=== PATIENT | female | born 1990 | race Caucasian/White ===

== ENCOUNTER 2016-06-02 00:20 | Emergency (ER) | payer OTHER ==
[~2016-06-02] VITALS: Ht 160 cm; Wt 63.0 kg
[~2016-06-02 00:20] MED LIST: ALBU18HF INHALATION; ALBU2.5V3 NEB; ALBU8.5H3 INH; AZIT250T94 PO; BECL8.7A INH; BECL8.7A5 INH; D-ME473S18 PO; FLUT9.9S NASAL; GUAI118L94 PO; LEVA0.634 INHALATION; PRED20TA PO; PROM6.25 PO; XOP15INH INH
[2016-06-02 00:28] VITALS: Ht 160 cm; Wt 63.0 kg
[2016-06-02] MEDS ORDERED: ALBUTEROL 0.5% (NEB) 2.5 MG/0.5 ML AMP INH STA (03:11)
[2016-06-02] MEDS ORDERED: METHYLPREDNISOLONE 125 MG INJ IM ONE (03:30)
[2016-06-02] MEDS ORDERED: IPRATROPIUM (NEB) 0.5 MG/2.5 ML AMP HHN ONE (03:30)
[2016-06-02] MEDS ORDERED: LEVALBUTEROL (NEB) 1.25 MG/0.5 ML AMP INH STA (04:38)
[2016-06-02] MEDS ORDERED: BECL8.7A INH (06:10)
[2016-06-02] MEDS ORDERED: GUAI473L22 PO (06:10)
[2016-06-02] MEDS ORDERED: PRED20TA PO (06:10)
--- NOTE | 2016-06-02 06:18 | ERD ---
ER Documentation Chief Complaint Date/Time DATE: 06/02/16 TIME: 06:12 Chief Complaint WORSENING SOB; NON-PRODUCTIVE COUGH X 2 WKS. LAST TYLENOL AT 1700 YESTERDAY HPI 26-year-old female with history of asthma is complaining of cough 2 weeks with shortness of breath since this evening. She has not used both albuterol inhaler and nebulizer at home without improvement. She still has plenty of her inhaler and nebulizer at home, but is running low on Qvar. Patient also want cough medication so she can sleep at night. Denies any fever or chills. ROS All systems reviewed and are negative except as per history of present illness. Medications Home Meds Active Scripts Guaifenesin-Codeine Phosphate* (Guaifenesin* AC Cough Syrup) 473 Ml Liquid, 10 ML PO Q4H Y for COUGH, #120 ML Prov:CHRISTY OLIVAREZ. REPAIRER WELDING EQUIPMENT 06/02/16 Beclomethasone Dip* (Qvar 40*) 7.3 Gm Inha, 2 PUFF INH BID, #1 INHALER Prov:CHRISTY OLIVAREZ. REPAIRER [employer]ING EQUIPMENT 06/02/16 Prednisone* (Prednisone*) 20 Mg Tab, 60 MG PO DAILY for 5 Days, TAB Prov:CHRISTY OLIVAREZ. REPAIRER WELDING EQUIPMENT 06/02/16 Albuterol Sulfate* (Proair HFA*) 8.5 Gm Hfa.aer.ad, 2 PUFF INH Q6, #1 INHALER Prov:ROSA MCDONALD PA-C 04/16/16 Dextromethorphan Hb-Promethazine Hcl (Promethazine DM Syrup) 473 Ml Syrup, 5 ML PO Q6H Y for COUGH for 7 Days, #4 OZ Prov:ROSA MCDONALD PA-C 04/16/16 Azithromycin* (Zithromax*) 250 Mg Tablet, 250 MG PO .DemarcoPACK DIRECTED, #6 TAB TAKE 500 MG (2 TABS) THE FIRST DAY THEN 250 MG (1 TAB) DAYS 2-5 Prov:ROSA MCDONALD PA-C 04/16/16 Prednisone* (Prednisone*) 20 Mg Tab, 40 MG PO DAILY for 4 Days, TAB Prov:ROSA MCDONALD PA-C 04/16/16 Fluticasone Propionate (Flonase Allergy Relief) 9.9 Ml [place].susp, 1 SPRAY NASAL DAILY, #1 BOTTLE TO EACH NOSTRIL Prov:CHRISTY OLIVAREZ NP 11/26/15 Beclomethasone Dip* (Qvar 80*) 7.3 Gm Inha, 1 PUFF INH BID, #1 INHALER Prov:CHRISTY OLIVAREZ NP 11/26/15 Guaifenesin-Codeine Phosphate* (Guaifenesin* with Codeine Liq) 120 Ml Liquid, 5 ML PO Q4H for COUGH, #120 ML Prov:CHRISTY OLIVAREZ NP 10/27/15 Albuterol Sulfate* (Ventolin HFA*) 18 Gm Hfa.aer.ad, 2 PUFF INHALATION Q4H, #1 INHALER Prov:CHRISTY OLIVAREZ NP 10/27/15 Promethazine w/Codeine* (Phenergan w/Codeine* Syrup) 5 Ml Syrup, 5 ML PO Q4H Y for COUGH for 7 Days, ML 6 ounces Prov:ANGELICA FLORES MD 09/15/15 Albuterol Sulfate* (Albuterol Sulfate* Neb) 0.083%-3 Ml Neb, 2.5 MG NEB Q3H Y for WHEEZING AND SOB, #30 VIAL Prov:ANGELICA FLORES MD 09/15/15 Beclomethasone Dip* (Qvar 40*) 7.3 Gm Inha, 1 PUFF INH BID, #1 INHALER Prov:ANGELICA FLORES MD 09/15/15 Albuterol Sulfate* (Ventolin HFA*) 18 Gm Hfa.aer.ad, 2 PUFF INHALATION Q4H, #1 INHALER Prov:ANGELICA FLORES MD 09/15/15 Prednisone* (Prednisone*) 20 Mg Tab, 60 MG PO DAILY for 5 Days, TAB 60 mg by mouth for 3 days then 40 mg and mouth for 3 days. Prov:ANGELICA FLORES MD 09/15/15 Azithromycin* (Zithromax*) 250 Mg Tablet, 250 MG PO .ZPACK DIRECTED, #6 TAB TAKE 500 MG (2 TABS) THE FIRST DAY THEN 250 MG (1 TAB) DAYS 2-5 Prov:ANGELICA FLORES MD 09/15/15 Promethazine w/Codeine* (Phenergan w/Codeine* Syrup) 5 Ml Syrup, 5 ML PO Q4H Y for COUGH, #240 ML Prov:BRITTANY OBANDO NP 06/21/15 Levalbuterol Hcl* (Levalbuterol Hcl*) 0.63 Mg/3 Ml Vial.neb, 0.63 MG INHALATION Q6H Y for WHEEZING AND SOB, #20 VIAL Prov:BRITTANY OBANDO NP 06/21/15 Beclomethasone Dip* (Qvar 40*) 7.3 Gm Inha, 1 PUFF INH BID, #1 INHALER Prov:BRITTANY OBANDO NP 06/21/15 Albuterol Sulfate* (Proair HFA*) 8.5 Gm Hfa.aer.ad, 2 PUFF INH Q4, #1 INHALER Prov:BRITTANY OBANDO NP 06/21/15 Prednisone* (Prednisone*) 20 Mg Tab, 20 MG PO DAILY for 7 Days, TAB Prov:STEPHANIE PERALES MD 04/30/15 Levalbuterol* (Xopenex* HFA) 15 Gm Inha, 2 PUFFS INH Q4H Y for WHEEZING AND SOB for 30 Days, INHALER 1 Refill Prov:STEPHANIE PERALES MD 04/30/15 Levalbuterol Hcl* (Levalbuterol Hcl*) 0.63 Mg/3 Ml Vial.neb, 0.63 MG INHALATION q4h Y for WHEEZING AND SOB for 30 Days, VIAL 1 Refill Prov:STEPHANIE PERALES MD 04/30/15 Promethazine w/Codeine* (Phenergan w/Codeine* Syrup) 5 Ml Syrup, 5 ML PO Q4H Y for COUGH for 20 Days, ML Prov:STEPHANIE PERALES MD 04/30/15 Beclomethasone Dip* (Qvar 80*) 7.3 Gm Inha, 2 PUFF INH BID for 30 Days, INH 1 Refill Prov:STEPHANIE PERALES MD 04/30/15 Allergies Allergies: Coded Allergies: No Known Allergy (Unverified , 04/29/15) PMhx/Soc History of Surgery: Yes (OVARIAN CYST REMOVAL 2012) Anesthesia Reaction: No Hx Neurological Disorder: No Hx Respiratory Disorders: Yes (ASTHMA) Hx Cardiac Disorders: No Hx Psychiatric Problems: No Hx Miscellaneous Medical Probl: No Hx Alcohol Use: No Hx Substance Use: No Hx Tobacco Use: No Smoking Status: Never smoker Physical Exam Vitals Vital Signs Date Time Temp Pulse Resp B/P Pulse Ox O2 Delivery O2 Flow Rate FiO2 06/02/16 05:55 91 96 Room Air 06/02/16 04:50 84 20 94 21 06/02/16 03:28 87 22 93 21 06/02/16 00:28 98.3 103 19 134/87 93 Physical Exam General impression: Well-developed, well-nourished, 26-year-old female, alert, oriented, in no acute distress Head: Normocephalic, atraumatic. Eyes: PERRL, EOM normal. Conjunctiva not injected. ENT: Nasal mucosa erythematous and swollen. Oral mucosa and oropharynx are normal. Neck: Supple, nontender. No lymphanopathy. No nuchal rigidity. Respiration: Normal respiratory effort. Airway tightness with some wheezing noted throughout. Cardiovascular: Regular rate and rhythm. No murmurs or extra heart sounds. Abdomen: Abdomen normal to inspection. Nontender. No masses or organomegaly. Bowel sounds normal. Neuro: Mental status normal, speech normal. Skin: Normal turgor. No rash or lesions. Psych: Normal mood and affect. Results 24 hrs Current Medications Medications (Trade) Dose Ordered Sig/Sandra Route PRN Reason Start Time Stop Time Status Last Admin Dose Admin Methylprednisolone Sodium Succinate (Solu-Medrol) 125 mg ONCE ONCE IM 06/02/16 03:30 06/02/16 03:31 DC 06/02/16 03:19 Albuterol (Proventil 0.5% (Neb)) 10 mg ONCE STAT INH 06/02/16 03:11 06/02/16 03:13 DC 06/02/16 03:27 Ipratropium [place] (Atrovent 0.02% (Neb)) 0.5 mg ONCE ONCE HHN 06/02/16 03:30 06/02/16 03:31 DC 06/02/16 03:27 Levalbuterol (Xopenex Neb) 5 mg ONCE STAT INH 06/02/16 04:38 06/02/16 04:41 DC 06/02/16 04:50 Procedures/MDM Solu-Medrol 125 mg IM, 1 hour continuous nebulizer treatment with albuterol 10 mg at Atrovent 0.5 mg given to the patient. Patient reports feeling better after treatment. Repeat exam revealed still very constricted airways with slightly louder wheezing. Her O2 sat at this time is 95%, improved from 93% on arrival. Additional 1 hour continuous nebulizer treatment with 5 mg Xopenex is given to the patient. After second treatment, patient states that she is breathing much better. Repeat exam showed much improved air movement throughout the lung with some wheezing remains. Her O2 sat at this time is 97%. Patient's respiratory status has stabilized while in the department and is appropriate for outpatient work up. Exam and work up not consistent w/ impending respiratory failure or cardiovascular collapse. Patient appears well, stable for discharge and outpatient management. Medical decision making shared with patient and family. Education provided to patient and family. Patient and family expressed understanding of the plan. Medications on discharge: Qvar, guaifenesin with codeine. Follow-up: Primary care provider in 2-3 days or return to ED if worse. Departure Diagnosis: Primary Impression: Asthma exacerbation Condition: Stable Patient Instructions: Asthma, Acute (Adult) Referrals: [facility] YOU HAVE RECEIVED A MEDICAL SCREENING EXAM AND THE RESULTS INDICATE THAT YOU DO NOT HAVE A CONDITION THAT REQUIRES URGENT TREATMENT IN THE EMERGENCY DEPARTMENT. FURTHER EVALUATION AND TREATMENT OF YOUR CONDITION CAN WAIT UNTIL YOU ARE SEEN IN YOUR DOCTORS OFFICE WITHIN THE NEXT 1-2 DAYS. IT IS YOUR RESPONSIBILITY TO MAKE AN APPOINTMENT FOR FOLOW-UP CARE. IF YOU HAVE A PRIMARY DOCTOR --you should call your primary doctor and schedule an appointment IF YOU DO NOT HAVE A PRIMARY DOCTOR YOU CAN CALL OUR PHYSICIAN REFERRAL HOTLINE AT IF YOU CAN NOT AFFORD TO SEE A PHYSICIAN YOU CAN CHOSE FROM THE FOLLOWING [facility] CL[facility]ICS [facility] [address] [facility]. [facility] [address] [facility]. [facility] [address] [facility]. [facility] [address] [facility]. [facility] [address] [facility]. [facility]. [address] Additional Instructions: Call your primary care doctor TOMORROW for an appointment during the next 2-3 days.See the doctor sooner or return here if your condition worsens before your appointment time. CHRISTY OLIVAREZ NP Jun 02, 2016 06:18
[2016-06-02 06:19] VITALS: BP 119/73; PULSE 104; RESP 14; TEMP 98.2
== END 2016-06-02 06:20 | disposition home or self-care (01) ==
LOC: FTE 00:20
DX: J45.901 Unspecified asthma with (acute) exacerbation (principal)
CPT/HCPCS: 94644; 94645; 96372; J2930; Z7502; Z7610

== ENCOUNTER 2016-09-23 16:03 | Emergency (ER) | payer OTHER ==
[~2016-09-23] VITALS: Ht 157.5 cm; Wt 62.5 kg
[~2016-09-23 16:03] MED LIST changes: +GUAI473L22 PO; +LEVA15HF6 INH; -XOP15INH INH
[2016-09-23 16:05] VITALS: Ht 157.5 cm; Wt 62.5 kg
[2016-09-23] MEDS ORDERED: IPRATROPIUM (NEB) 0.5 MG/2.5 ML AMP NEB STA (17:02)
[2016-09-23] MEDS ORDERED: ALBUTEROL 0.5% (NEB) 2.5 MG/0.5 ML AMP INH STA (17:02)
[2016-09-23] MEDS ORDERED: BECL8.7A5 INH (17:13)
[2016-09-23] MEDS ORDERED: PRED20TA PO (17:13)
[2016-09-23] MEDS ORDERED: ALBU8.5H3 INH (17:13)
--- NOTE | 2016-09-23 17:27 | ERD ---
ER Documentation Chief Complaint Date/Time DATE: 09/23/16 TIME: 17:25 Chief Complaint WHEEZING SINCE THIS MORNING HPI 18-year-old female history of asthma comes emergency department with wheezing that started this morning. She states that usually uses Qvar 80 mg, as well as albuterol. Patient states that she was recently moving furniture and there was a lot of dust 3 days ago and reports that there may have been exacerbation secondary to this. She denies any fevers, chills, cough. She denies chest pain. ROS All systems reviewed and are negative except as per history of present illness. Medications Home Meds Active Scripts Prednisone* (Prednisone*) 20 Mg Tab, 40 MG PO DAILY for 4 Days, TAB Prov:IVON BARCENAS PA-C 09/23/16 Beclomethasone Dip* (Qvar 80*) 7.3 Gm Inha, 1 PUFF INH BID, #1 INHALER Prov:IVON BARCENAS PA-C 09/23/16 Albuterol Sulfate* (Proair HFA*) 8.5 Gm Hfa.aer.ad, 2 PUFF INH Q4, #1 INHALER Prov:IVON BARCENAS PA-C 09/23/16 Guaifenesin-Codeine Phosphate* (Guaifenesin* AC Cough Syrup) 473 Ml Liquid, 10 ML PO Q4H Y for COUGH, #120 ML Prov:CHRISTY OLIVAREZ NP 06/02/16 Beclomethasone Dip* (Qvar 40*) 7.3 Gm Inha, 2 PUFF INH BID, #1 INHALER Prov:CHRISTY OLIVAREZ. GEOTHERMAL TECHNICIAN 06/02/16 Prednisone* (Prednisone*) 20 Mg Tab, 60 MG PO DAILY for 5 Days, TAB Prov:CHRISTY OLIVAREZ. GEOTHERMAL TECHNICIAN 06/02/16 Albuterol Sulfate* (Proair HFA*) 8.5 Gm Hfa.aer.ad, 2 PUFF INH Q6, #1 INHALER Prov:ROSA MCDONALD PA-C 04/16/16 Dextromethorphan Hb-Promethazine Hcl (Promethazine DM Syrup) 473 Ml Syrup, 5 ML PO Q6H Y for COUGH for 7 Days, #4 OZ Prov:ROSA MCDONALD PA-C 04/16/16 Azithromycin* (Zithromax*) 250 Mg Tablet, 250 MG PO .ZPACK DIRECTED, #6 TAB TAKE 500 MG (2 TABS) THE FIRST DAY THEN 250 MG (1 TAB) DAYS 2-5 Prov:ROSA MCDONALD PA-C 04/16/16 Prednisone* (Prednisone*) 20 Mg Tab, 40 MG PO DAILY for 4 Days, TAB Prov:ROSA MCDONALD PA-C 04/16/16 Fluticasone Propionate (Flonase Allergy Relief) 9.9 Ml [place].susp, 1 SPRAY NASAL DAILY, #1 BOTTLE TO EACH NOSTRIL Prov:CHRISTY OLIVAREZ NP 11/26/15 Beclomethasone Dip* (Qvar 80*) 7.3 Gm Inha, 1 PUFF INH BID, #1 INHALER Prov:CHRISTY OLIVAREZ NP 11/26/15 Guaifenesin-Codeine Phosphate* (Guaifenesin* with Codeine Liq) 120 Ml Liquid, 5 ML PO Q4H for COUGH, #120 ML Prov:CHRISTY OLIVAREZ NP 10/27/15 Albuterol Sulfate* (Ventolin HFA*) 18 Gm Hfa.aer.ad, 2 PUFF INHALATION Q4H, #1 INHALER Prov:CHRISTY OLIVAREZ NP 10/27/15 Promethazine w/Codeine* (Phenergan w/Codeine* Syrup) 5 Ml Syrup, 5 ML PO Q4H Y for COUGH for 7 Days, ML 6 ounces Prov:ANGELICA FLORES MD 09/15/15 Albuterol Sulfate* (Albuterol Sulfate* Neb) 0.083%-3 Ml Neb, 2.5 MG NEB Q3H Y for WHEEZING AND SOB, #30 VIAL Prov:ANGELICA FLORES MD 09/15/15 Beclomethasone Dip* (Qvar 40*) 7.3 Gm Inha, 1 PUFF INH BID, #1 INHALER Prov:ANGELICA FLORES MD 09/15/15 Albuterol Sulfate* (Ventolin HFA*) 18 Gm Hfa.aer.ad, 2 PUFF INHALATION Q4H, #1 INHALER Prov:ANGELICA FLORES MD 09/15/15 Prednisone* (Prednisone*) 20 Mg Tab, 60 MG PO DAILY for 5 Days, TAB 60 mg by mouth for 3 days then 40 mg and mouth for 3 days. Prov:ANGELICA FLORES MD 09/15/15 Azithromycin* (Zithromax*) 250 Mg Tablet, 250 MG PO .VICTOR HUGO DIRECTED, #6 TAB TAKE 500 MG (2 TABS) THE FIRST DAY THEN 250 MG (1 TAB) DAYS 2-5 Prov:ANGELICA FLORES MD 09/15/15 Promethazine w/Codeine* (Phenergan w/Codeine* Syrup) 5 Ml Syrup, 5 ML PO Q4H Y for COUGH, #240 ML Prov:BRITTANY OBANDO NP 06/21/15 Levalbuterol Hcl* (Levalbuterol Hcl*) 0.63 Mg/3 Ml Vial.neb, 0.63 MG INHALATION Q6H Y for WHEEZING AND SOB, #20 VIAL Prov:BRITTANY OBANDO NP 06/21/15 Beclomethasone Dip* (Qvar 40*) 7.3 Gm Inha, 1 PUFF INH BID, #1 INHALER Prov:BRITTANY OBANDO NP 06/21/15 Albuterol Sulfate* (Proair HFA*) 8.5 Gm Hfa.aer.ad, 2 PUFF INH Q4, #1 INHALER Prov:BRITTANY OBANDO NP 06/21/15 Prednisone* (Prednisone*) 20 Mg Tab, 20 MG PO DAILY for 7 Days, TAB Prov:STEPHANIE PERALES MD 04/30/15 Levalbuterol* (Xopenex* HFA) 15 Gm Inha, 2 PUFFS INH Q4H Y for WHEEZING AND SOB for 30 Days, INHALER 1 Refill Prov:STEPHANIE PERALES MD 04/30/15 Levalbuterol Hcl* (Levalbuterol Hcl*) 0.63 Mg/3 Ml Vial.neb, 0.63 MG INHALATION q4h Y for WHEEZING AND SOB for 30 Days, VIAL 1 Refill Prov:STEPHANIE PERALES MD 04/30/15 Promethazine w/Codeine* (Phenergan w/Codeine* Syrup) 5 Ml Syrup, 5 ML PO Q4H Y for COUGH for 20 Days, ML Prov:STEPHANIE PERALES MD 04/30/15 Beclomethasone Dip* (Qvar 80*) 7.3 Gm Inha, 2 PUFF INH BID for 30 Days, INH 1 Refill Prov:STEPHANIE PERALES MD 04/30/15 Allergies Allergies: Coded Allergies: No Known Allergy (Unverified , 04/29/15) PMhx/Soc History of Surgery: Yes (OVARIAN CYST REMOVAL 2012) Anesthesia Reaction: No Hx Neurological Disorder: No Hx Respiratory Disorders: Yes (ASTHMA) Hx Cardiac Disorders: No Hx Psychiatric Problems: No Hx Miscellaneous Medical Probl: No Hx Alcohol Use: No Hx Substance Use: No Hx Tobacco Use: No Smoking Status: Never smoker Physical Exam Vitals Vital Signs Date Time Temp Pulse Resp B/P Pulse Ox O2 Delivery O2 Flow Rate FiO2 09/23/16 17:23 60 22 98 21 09/23/16 16:05 97.2 91 18 115/59 94 Physical Exam General: Well-developed, well-nourished. The patient appears in no acute distress. HEENT: Head is normocephalic, atraumatic. No scleral icterus. Neck: Supple. Nontender. Lungs: Bilateral wheezing, nonlabored, no respiratory distress. Heart: Regular rate and rhythm. S1 and S2 are normal. No murmurs, gallops, or rubs. Abdomen: Nondistended. Extremities: No clubbing or cyanosis. Moving extremities x 4. No weakness. Neurologic: Alert and oriented 3. No focal deficits. Normal speech and gait. Skin: Normal turgor. No rash or lesions. Results 24 hrs Current Medications Medications (Trade) Dose Ordered Sig/Sandra Route PRN Reason Start Time Stop Time Status Last Admin Dose Admin Prednisone (Prednisone) 60 mg ONCE ONCE PO 09/23/16 17:30 09/23/16 17:31 09/23/16 17:14 Ipratropium [place] (Atrovent 0.02% (Neb)) 0.5 mg ONCE STAT NEB 09/23/16 17:02 09/23/16 17:04 DC 09/23/16 17:21 Albuterol (Proventil 0.5% (Neb)) 10 mg ONCE STAT INH 09/23/16 17:02 09/23/16 17:04 DC 09/23/16 17:21 Procedures/MDM ED course: Patient was given prednisone 60 mg by mouth, she was given a continuous albuterol neb breathing treatment 10 mg as well as Atrovent 0.5 mg. Re auscultation her breath sounds are much better than breath sounds, she is still wheezing and she reports to be feeling much better at this time and feels comfortable. MDM: 18-year-old female presents with an acute asthma exacerbation, patient symptoms appear to be moderate, without any signs of hypoxia, respiratory distress. Other differentials considered include bronchitis, pneumonia, hypoxia , pulmonary embolus, acute coronary syndrome, however unlikely. She was given a breathing treatment as well as prednisone, she feels better at this time and responded well. Her vitals were reviewed and there are no no signs of hypoxia or respiratory distress. She is requesting refills for the albuterol as well as Qvar which she will be given and she was asked to recheck with her primary care physician. Departure Diagnosis: Primary Impression: Asthma exacerbation Condition: Good Patient Instructions: Asthma Medications Referrals: [facility] YOU HAVE RECEIVED A MEDICAL SCREENING EXAM AND THE RESULTS INDICATE THAT YOU DO NOT HAVE A CONDITION THAT REQUIRES URGENT TREATMENT IN THE EMERGENCY DEPARTMENT. FURTHER EVALUATION AND TREATMENT OF YOUR CONDITION CAN WAIT UNTIL YOU ARE SEEN IN YOUR DOCTORS OFFICE WITHIN THE NEXT 1-2 DAYS. IT IS YOUR RESPONSIBILITY TO MAKE AN APPOINTMENT FOR FOLOW-UP CARE. IF YOU HAVE A PRIMARY DOCTOR --you should call your primary doctor and schedule an appointment IF YOU DO NOT HAVE A PRIMARY DOCTOR YOU CAN CALL OUR PHYSICIAN REFERRAL HOTLINE AT IF YOU CAN NOT AFFORD TO SEE A PHYSICIAN YOU CAN CHOSE FROM THE FOLLOWING [facility] CL[facility]ICS [facility] [address] [facility]. [facility] [address] [facility]. [facility] [address] [facility]. [facility] [address] [facility]. [facility] [address] [facility]. [facility]. [address] [facility]. [facility] YOU HAVE RECEIVED A MEDICAL SCREENING EXAM AND THE RESULTS INDICATE THAT YOU DO NOT HAVE A CONDITION THAT REQUIRES URGENT TREATMENT IN THE EMERGENCY DEPARTMENT. FURTHER EVALUATION AND TREATMENT OF YOUR CONDITION CAN WAIT UNTIL YOU ARE SEEN IN YOUR DOCTORS OFFICE WITHIN THE NEXT 1-2 DAYS. IT IS YOUR RESPONSIBILITY TO MAKE AN APPOINTMENT FOR FOLOW-UP CARE. IF YOU HAVE A PRIMARY DOCTOR --you should call your primary doctor and schedule and appointment IF YOU DO NOT HAVE A PRIMARY DOCTOR YOU CAN CALL OUR PHYSICIAN REFERRAL HOTLINE AT . IF YOU CAN NOT AFFORD TO SEE A PHYSICIAN YOU CAN CHOSE FROM THE FOLLOWING [facility]: [facility] [address] [place] [address] [facility] [address] [place] [address] [facility] + [facility] [address] [place] [address] [facility] Additional Instructions: Call your primary care doctor TOMORROW for an appointment during the next 1-2 days.See the doctor sooner or return here if your condition worsens before your appointment time. IVON BARCENAS PA-C September 23, 2016 17:27
[2016-09-23] MEDS ORDERED: predniSONE 20 MG TAB PO ONE (17:30)
== END 2016-09-23 18:10 | disposition home or self-care (01) ==
LOC: FTE 16:03
DX: J45.901 Unspecified asthma with (acute) exacerbation (principal)
CPT/HCPCS: 94644; J7512; Z7502; Z7610

== ENCOUNTER 2016-11-03 17:06 | Emergency (ER) | payer OTHER ==
[~2016-11-03] VITALS: Ht 160 cm; Wt 62.5 kg
[2016-11-03 17:15] VITALS: Ht 160 cm; Wt 62.5 kg
[2016-11-03] MEDS ORDERED: predniSONE 20 MG TAB PO STA (17:28)
[2016-11-03] MEDS ORDERED: IPRATROPIUM (NEB) 0.5 MG/2.5 ML AMP NEB STA (17:28)
[2016-11-03] MEDS ORDERED: ALBUTEROL 0.5% (NEB) 2.5 MG/0.5 ML AMP INH STA (17:28)
[2016-11-03] MEDS ORDERED: ONDANSETRON (ODT) 4 MG TAB ODT STA (17:28)
--- NOTE | 2016-11-03 17:35 | ERD ---
ER Documentation Chief Complaint Date/Time DATE: 11/03/16 TIME: 17:34 Chief Complaint ASTHMA EXASCERBATION WHEEZING AND SOB HPI 26-year-old female history of asthma comes emergency room and asthma exacerbation and shortness of breath that started last night. Patient states that she usually takes Qvar, albuterol however she states that she ran out of Qvar 4 days ago. She went to try to see her primary care doctor today however the staff was not able to accommodate her in today. She has no associated cough , sore throat, rhinorrhea. She denies fevers or chills. She denies chest pains. ROS All systems reviewed and are negative except as per history of present illness. Medications Home Meds Active Scripts Methylprednisolone* (Medrol* DOSE PACK) 4 Mg/Dose-Pack Tab.ds.pk, 4 MG PO . DIRECTED, #1 PACKET Prov:IVON BARCENAS PA-C 11/03/16 Albuterol Sulfate* (Proair HFA*) 8.5 Gm Hfa.aer.ad, 2 PUFF INH Q4, #1 INHALER Prov:IVON BARCENAS PA-C 11/03/16 Beclomethasone Dip* (Qvar 80*) 7.3 Gm Inha, 1 PUFF INH BID, #1 INHALER Prov:IVON BARCENAS PA-C 11/03/16 Prednisone* (Prednisone*) 20 Mg Tab, 40 MG PO DAILY for 4 Days, TAB Prov:IVON BARCENAS PA-C 09/23/16 Beclomethasone Dip* (Qvar 80*) 7.3 Gm Inha, 1 PUFF INH BID, #1 INHALER Prov:IVON BARCENAS PA-C 09/23/16 Albuterol Sulfate* (Proair HFA*) 8.5 Gm Hfa.aer.ad, 2 PUFF INH Q4, #1 INHALER Prov:IVON BARCENAS PA-C 09/23/16 Guaifenesin-Codeine Phosphate* (Guaifenesin* AC Cough Syrup) 473 Ml Liquid, 10 ML PO Q4H Y for COUGH, #120 ML Prov:CHRISTY OLIVAREZ. PHONOGRAPH MECHANIC 06/02/16 Beclomethasone Dip* (Qvar 40*) 7.3 Gm Inha, 2 PUFF INH BID, #1 INHALER Prov:CHRISTY OLIVAREZ. PHONOGRAPH MECHANIC 06/02/16 Prednisone* (Prednisone*) 20 Mg Tab, 60 MG PO DAILY for 5 Days, TAB Prov:CHRISTY OLIVAREZ NP 06/02/16 Albuterol Sulfate* (Proair HFA*) 8.5 Gm Hfa.aer.ad, 2 PUFF INH Q6, #1 INHALER Prov:ROSA MCDONALD PA-C 04/16/16 Dextromethorphan Hb-Promethazine Hcl (Promethazine DM Syrup) 473 Ml Syrup, 5 ML PO Q6H Y for COUGH for 7 Days, #4 OZ Prov:ROSA MCDONALD PA-C 04/16/16 Azithromycin* (Zithromax*) 250 Mg Tablet, 250 MG PO .ZPACK DIRECTED, #6 TAB TAKE 500 MG (2 TABS) THE FIRST DAY THEN 250 MG (1 TAB) DAYS 2-5 Prov:ROSA MCDONALD PA-C 04/16/16 Prednisone* (Prednisone*) 20 Mg Tab, 40 MG PO DAILY for 4 Days, TAB Prov:ROSA MCDONALD PA-C 04/16/16 Fluticasone Propionate (Flonase Allergy Relief) 9.9 Ml [place].susp, 1 SPRAY NASAL DAILY, #1 BOTTLE TO EACH NOSTRIL Prov:CHRISTY OLIVAREZ NP 11/26/15 Beclomethasone Dip* (Qvar 80*) 7.3 Gm Inha, 1 PUFF INH BID, #1 INHALER Prov:CHRISTY OLIVAREZ NP 11/26/15 Guaifenesin-Codeine Phosphate* (Guaifenesin* with Codeine Liq) 120 Ml Liquid, 5 ML PO Q4H for COUGH, #120 ML Prov:CHRISTY OLIVAREZ NP 10/27/15 Albuterol Sulfate* (Ventolin HFA*) 18 Gm Hfa.aer.ad, 2 PUFF INHALATION Q4H, #1 INHALER Prov:CHRISTY OLIVAREZ NP 10/27/15 Promethazine w/Codeine* (Phenergan w/Codeine* Syrup) 5 Ml Syrup, 5 ML PO Q4H Y for COUGH for 7 Days, ML 6 ounces Prov:ANGELICA FLORES MD 09/15/15 Albuterol Sulfate* (Albuterol Sulfate* Neb) 0.083%-3 Ml Neb, 2.5 MG NEB Q3H Y for WHEEZING AND SOB, #30 VIAL Prov:ANGELICA FLORES MD 09/15/15 Beclomethasone Dip* (Qvar 40*) 7.3 Gm Inha, 1 PUFF INH BID, #1 INHALER Prov:ANGELICA FLORES MD 09/15/15 Albuterol Sulfate* (Ventolin HFA*) 18 Gm Hfa.aer.ad, 2 PUFF INHALATION Q4H, #1 INHALER Prov:ANGELICA FLORES MD 09/15/15 Prednisone* (Prednisone*) 20 Mg Tab, 60 MG PO DAILY for 5 Days, TAB 60 mg by mouth for 3 days then 40 mg and mouth for 3 days. Prov:ANGELICA FLORES MD 09/15/15 Azithromycin* (Zithromax*) 250 Mg Tablet, 250 MG PO .DemarcoPACK DIRECTED, #6 TAB TAKE 500 MG (2 TABS) THE FIRST DAY THEN 250 MG (1 TAB) DAYS 2-5 Prov:ANGELICA FLORES MD 09/15/15 Promethazine w/Codeine* (Phenergan w/Codeine* Syrup) 5 Ml Syrup, 5 ML PO Q4H Y for COUGH, #240 ML Prov:BRITTANY OBANDO NP 06/21/15 Levalbuterol Hcl* (Levalbuterol Hcl*) 0.63 Mg/3 Ml Vial.neb, 0.63 MG INHALATION Q6H Y for WHEEZING AND SOB, #20 VIAL Prov:BRITTANY OBANDO NP 06/21/15 Beclomethasone Dip* (Qvar 40*) 7.3 Gm Inha, 1 PUFF INH BID, #1 INHALER Prov:BRITTANY OBANDO NP 06/21/15 Albuterol Sulfate* (Proair HFA*) 8.5 Gm Hfa.aer.ad, 2 PUFF INH Q4, #1 INHALER Prov:BRITTANY OBANDO NP 06/21/15 Prednisone* (Prednisone*) 20 Mg Tab, 20 MG PO DAILY for 7 Days, TAB Prov:STEPHANIE PERALES MD 04/30/15 Levalbuterol* (Xopenex* HFA) 15 Gm Inha, 2 PUFFS INH Q4H Y for WHEEZING AND SOB for 30 Days, INHALER 1 Refill Prov:STEPHANIE PERALES MD 04/30/15 Levalbuterol Hcl* (Levalbuterol Hcl*) 0.63 Mg/3 Ml Vial.neb, 0.63 MG INHALATION q4h Y for WHEEZING AND SOB for 30 Days, VIAL 1 Refill Prov:STEPHANIE PERALES MD 04/30/15 Promethazine w/Codeine* (Phenergan w/Codeine* Syrup) 5 Ml Syrup, 5 ML PO Q4H Y for COUGH for 20 Days, ML Prov:STEPHANIE PERALES MD 04/30/15 Beclomethasone Dip* (Qvar 80*) 7.3 Gm Inha, 2 PUFF INH BID for 30 Days, INH 1 Refill Prov:STEPHANIE PERALES MD 04/30/15 Allergies Allergies: Coded Allergies: No Known Allergy (Unverified , 04/29/15) PMhx/Soc History of Surgery: Yes (OVARIAN CYST REMOVAL 2012) Anesthesia Reaction: No Hx Neurological Disorder: No Hx Respiratory Disorders: Yes (ASTHMA) Hx Cardiac Disorders: No Hx Psychiatric Problems: No Hx Miscellaneous Medical Probl: No Hx Alcohol Use: No Hx Substance Use: No Hx Tobacco Use: No Physical Exam Vitals Vital Signs Date Time Temp Pulse Resp B/P Pulse Ox O2 Delivery O2 Flow Rate FiO2 11/03/16 17:42 86 19 96 21 11/03/16 17:15 98.9 84 18 115/79 91 Physical Exam General: Well-developed, well-nourished. The patient appears in no acute distress. HEENT: Head is normocephalic, atraumatic. No scleral icterus. Neck: Supple. Nontender. Lungs: Wheezing bilaterally, patient is nonlabored. She is speaking in full sentences. Heart: Regular rate and rhythm. S1 and S2 are normal. No murmurs, gallops, or rubs. Abdomen: Nondistended. Extremities: No clubbing or cyanosis. Moving extremities x 4. No weakness. No lower extremity swelling. Neurologic: Alert and oriented 3. No focal deficits. Normal speech and gait. Skin: Normal turgor. No rash or lesions. Results 24 hrs Current Medications Medications (Trade) Dose Ordered Sig/Sandra Route PRN Reason Start Time Stop Time Status Last Admin Dose Admin Ipratropium [place] (Atrovent 0.02% (Neb)) 0.5 mg ONCE STAT NEB 11/03/16 17:28 11/03/16 17:30 DC 11/03/16 17:40 Albuterol (Proventil 0.5% (Neb)) 10 mg ONCE STAT INH 11/03/16 17:28 11/03/16 17:30 DC 11/03/16 17:38 Prednisone (Prednisone) 60 mg ONCE STAT PO 11/03/16 17:28 11/03/16 17:30 DC 11/03/16 17:48 Ondansetron HCl (Zofran Odt) 4 mg ONCE STAT ODT 11/03/16 17:28 11/03/16 17:30 DC 11/03/16 17:48 Procedures/MDM ER course: Patient was given prednisone 60 mg by mouth, she was given a continuous albuterol neb breathing treatment 10 mg as well as Atrovent 0.5 mg. We auscultation shows improved breath sounds, patient reports to have symptomatic improvement. Pulse oximetry was 96% on room air. Medical decision makin-year-old female comes in with an asthma exacerbation after running out of her medication 4 days ago. Patient states that she ran out of her Qvar and therefore has been having a recent exacerbation. She was wheezing on examination, respond this patient will be given a refill of albuterol, Qvar, and will be given a Medrol Dosepak. I have asked her to follow-up with her primary care doctor for further refills and reevaluation. At this time I doubt acute coronary syndrome, pulmonary embolus, dissection, pneumonia. Departure Diagnosis: Primary Impression: Asthma Condition: IVON Allen PA-C Nov 03, 2016 17:35
[2016-11-03] MEDS ORDERED: ALBU8.5H3 INH (18:21)
[2016-11-03] MEDS ORDERED: MED4DP PO (18:21)
[2016-11-03] MEDS ORDERED: BECL8.7A5 INH (18:21)
[2016-11-03 19:18] VITALS: BP 104/72; PULSE 76; RESP 18; TEMP 98.2
== END 2016-11-03 19:24 | disposition home or self-care (01) ==
LOC: FTE 17:06
DX: J45.901 Unspecified asthma with (acute) exacerbation (principal)
CPT/HCPCS: 94644; J7512; Z7502; Z7610

== ENCOUNTER 2017-01-19 12:49 | Emergency (ER) | payer OTHER ==
[~2017-01-19] VITALS: Ht 160 cm; Wt 64.0 kg
[~2017-01-19 12:49] MED LIST changes: +MED4DP PO
[2017-01-19 12:52] VITALS: Ht 160 cm; Wt 64.0 kg
[2017-01-19] MEDS ORDERED: ALBUTEROL 0.083% (NEB) 2.5 MG/3 ML AMP HHN STA (14:18)
[2017-01-19] MEDS ORDERED: IPRATROPIUM (NEB) 0.5 MG/2.5 ML AMP HHN ONE (14:30)
[2017-01-19] MEDS ORDERED: ALBU18HF INHALATION (15:22)
[2017-01-19] MEDS ORDERED: GUAI473L22 PO (15:22)
[2017-01-19 15:47] VITALS: BP 117/68; PULSE 80; RESP 18; TEMP 98.7
--- NOTE | 2017-01-20 10:24 | ERD ---
ER Documentation Chief Complaint Date/Time DATE: 01/20/17 TIME: 10:19 Chief Complaint cough and cold for 2 weeks, chest pain when coughing HPI 27-year-old female with history of asthma present ED with cough 2 weeks. Cough is nonproductive, worse at night. She reports nasal congestion, sore throat, and chest pain when coughing. Patient thinks that her symptom is getting worse. She has been using albuterol inhaler, which only helped for short period. She also took OTC medications without much relief. Denies fever or chills. Denies abdominal pain, vomiting, or diarrhea. She does have shortness breath at times, relieved with inhaler. No shortness breath at this time. ROS All systems reviewed and are negative except as per history of present illness. Medications Home Meds Active Scripts Albuterol Sulfate* (Ventolin HFA*) 18 Gm Hfa.aer.ad, 2 PUFF INHALATION Q4H, #1 INHALER Prov:CHRISTY OLIVAREZ. HEEL FINISHER 01/19/17 Guaifenesin-Codeine Phosphate* (Guaifenesin* AC Cough Syrup) 473 Ml Liquid, 10 ML PO Q4H Y for COUGH, #120 ML Prov:CHRISTY OLIVAREZ. HEEL FINISHER 01/19/17 Methylprednisolone* (Medrol* DOSE PACK) 4 Mg/Dose-Pack Tab.ds.pk, 4 MG PO . DIRECTED, #1 PACKET Prov:IVON BARCENAS PA-C 11/03/16 Albuterol Sulfate* (Proair HFA*) 8.5 Gm Hfa.aer.ad, 2 PUFF INH Q4, #1 INHALER Prov:IVON BARCENAS PA-C 11/03/16 Beclomethasone Dip* (Qvar 80*) 7.3 Gm Inha, 1 PUFF INH BID, #1 INHALER Prov:IVON BARCENAS PA-C 11/03/16 Prednisone* (Prednisone*) 20 Mg Tab, 40 MG PO DAILY for 4 Days, TAB Prov:IVON BARCENAS PA-C 09/23/16 Beclomethasone Dip* (Qvar 80*) 7.3 Gm Inha, 1 PUFF INH BID, #1 INHALER Prov:IVON BARCENAS PA-C 09/23/16 Albuterol Sulfate* (Proair HFA*) 8.5 Gm Hfa.aer.ad, 2 PUFF INH Q4, #1 INHALER Prov:IVON BARCENAS PA-C 09/23/16 Guaifenesin-Codeine Phosphate* (Guaifenesin* AC Cough Syrup) 473 Ml Liquid, 10 ML PO Q4H Y for COUGH, #120 ML Prov:CHRISTY OLIVAREZ HEEL FINISHER 06/02/16 Beclomethasone Dip* (Qvar 40*) 7.3 Gm Inha, 2 PUFF INH BID, #1 INHALER Prov:CHRISTY OLIVAREZ. HEEL FINISHER 06/02/16 Prednisone* (Prednisone*) 20 Mg Tab, 60 MG PO DAILY for 5 Days, TAB Prov:CHRISTY OLIVAREZ HEEL FINISHER 06/02/16 Albuterol Sulfate* (Proair HFA*) 8.5 Gm Hfa.aer.ad, 2 PUFF INH Q6, #1 INHALER Prov:ROSA MCDONALD PA-C 04/16/16 Dextromethorphan Hb-Promethazine Hcl (Promethazine DM Syrup) 473 Ml Syrup, 5 ML PO Q6H Y for COUGH for 7 Days, #4 OZ Prov:ROSA MCDONALD PA-C 04/16/16 Azithromycin* (Zithromax*) 250 Mg Tablet, 250 MG PO .DemarcoPACK DIRECTED, #6 TAB TAKE 500 MG (2 TABS) THE FIRST DAY THEN 250 MG (1 TAB) DAYS 2-5 Prov:ROSA MCDONALD PA-C 04/16/16 Prednisone* (Prednisone*) 20 Mg Tab, 40 MG PO DAILY for 4 Days, TAB Prov:ROSA MCDONALD PA-C 04/16/16 Fluticasone Propionate (Flonase Allergy Relief) 9.9 Ml [place].susp, 1 SPRAY NASAL DAILY, #1 BOTTLE TO EACH NOSTRIL Prov:CHRISTY OLIVAREZ HEEL FINISHER 11/26/15 Beclomethasone Dip* (Qvar 80*) 7.3 Gm Inha, 1 PUFF INH BID, #1 INHALER Prov:CHRISTY OLIVAREZ HEEL FINISHER 11/26/15 Guaifenesin-Codeine Phosphate* (Guaifenesin* with Codeine Liq) 120 Ml Liquid, 5 ML PO Q4H for COUGH, #120 ML Prov:CHRISTY OLIVAREZ HEEL FINISHER 10/27/15 Albuterol Sulfate* (Ventolin HFA*) 18 Gm Hfa.aer.ad, 2 PUFF INHALATION Q4H, #1 INHALER Prov:CHRISTY OLIVAREZ NP 10/27/15 Promethazine w/Codeine* (Phenergan w/Codeine* Syrup) 5 Ml Syrup, 5 ML PO Q4H Y for COUGH for 7 Days, ML 6 ounces Prov:ANGELICA FLORES MD 09/15/15 Albuterol Sulfate* (Albuterol Sulfate* Neb) 0.083%-3 Ml Neb, 2.5 MG NEB Q3H Y for WHEEZING AND SOB, #30 VIAL Prov:ANGELICA FLORES MD 09/15/15 Beclomethasone Dip* (Qvar 40*) 7.3 Gm Inha, 1 PUFF INH BID, #1 INHALER Prov:ANGELICA FLORES MD 09/15/15 Albuterol Sulfate* (Ventolin HFA*) 18 Gm Hfa.aer.ad, 2 PUFF INHALATION Q4H, #1 INHALER Prov:ANGELICA FLORES MD 09/15/15 Prednisone* (Prednisone*) 20 Mg Tab, 60 MG PO DAILY for 5 Days, TAB 60 mg by mouth for 3 days then 40 mg and mouth for 3 days. Prov:ANGELICA FLORES MD 09/15/15 Azithromycin* (Zithromax*) 250 Mg Tablet, 250 MG PO .ZPACK DIRECTED, #6 TAB TAKE 500 MG (2 TABS) THE FIRST DAY THEN 250 MG (1 TAB) DAYS 2-5 Prov:ANGELICA FLORES MD 09/15/15 Promethazine w/Codeine* (Phenergan w/Codeine* Syrup) 5 Ml Syrup, 5 ML PO Q4H Y for COUGH, #240 ML Prov:BRITTANY OBANDO NP 06/21/15 Levalbuterol Hcl* (Levalbuterol Hcl*) 0.63 Mg/3 Ml Vial.neb, 0.63 MG INHALATION Q6H Y for WHEEZING AND SOB, #20 VIAL Prov:BRITTANY OBANDO NP 06/21/15 Beclomethasone Dip* (Qvar 40*) 7.3 Gm Inha, 1 PUFF INH BID, #1 INHALER Prov:GISELLABRITTANY Maxwell HEEL FINISHER 06/21/15 Albuterol Sulfate* (Proair HFA*) 8.5 Gm Hfa.aer.ad, 2 PUFF INH Q4, #1 INHALER Prov:BRITTANY OBANDO Alissa HEEL FINISHER 06/21/15 Prednisone* (Prednisone*) 20 Mg Tab, 20 MG PO DAILY for 7 Days, TAB Prov:STEPHANIE PERALES MD 04/30/15 Levalbuterol* (Xopenex* HFA) 15 Gm Inha, 2 PUFFS INH Q4H Y for WHEEZING AND SOB for 30 Days, INHALER 1 Refill Prov:STEPHANIE PERALES MD 04/30/15 Levalbuterol Hcl* (Levalbuterol Hcl*) 0.63 Mg/3 Ml Vial.neb, 0.63 MG INHALATION q4h Y for WHEEZING AND SOB for 30 Days, VIAL 1 Refill Prov:STEPHANIE PERALES MD 04/30/15 Promethazine w/Codeine* (Phenergan w/Codeine* Syrup) 5 Ml Syrup, 5 ML PO Q4H Y for COUGH for 20 Days, ML Prov:STEPHANIE PERALES MD 04/30/15 Beclomethasone Dip* (Qvar 80*) 7.3 Gm Inha, 2 PUFF INH BID for 30 Days, INH 1 Refill Prov:STEPHANIE PERALES MD 04/30/15 Allergies Allergies: Coded Allergies: No Known Allergy (Unverified , 01/19/17) PMhx/Soc History of Surgery: Yes (OVARIAN CYST REMOVAL 2012) Anesthesia Reaction: No Hx Neurological Disorder: No Hx Respiratory Disorders: Yes (ASTHMA) Hx Cardiac Disorders: No Hx Psychiatric Problems: No Hx Miscellaneous Medical Probl: No Hx Alcohol Use: No Hx Substance Use: No Hx Tobacco Use: No Smoking Status: Never smoker Physical Exam Vitals Vital Signs Date Time Temp Pulse Resp B/P Pulse Ox O2 Delivery O2 Flow Rate FiO2 01/19/17 15:47 98.7 80 18 117/68 100 Room Air 01/19/17 15:21 94 18 119/70 98 01/19/17 14:43 77 19 93 21 01/19/17 12:52 98.4 88 18 129/73 93 Physical Exam General: Well-developed, well-nourished, conscious and coherent, in no distress Skin: Warm and dry without rash, good texture and turgor Head: Normocephalic without evidence of trauma Eyes: Sclera and conjunctivae normal; pupils equal, round, and reactive to light; extraocular movements are intact Ears: Canals are patent. Tympanic membranes are clear Nose/Face: Without rhinorrhea Mouth/throat: Mucous membranes are moist. Posterior pharynx clear without erythema or exudates Neck: Supple without meningismus or adenopathy. Carotids are equal. Trachea midline. No bruits or JVD Chest: Normal AP diameter. Good expansion without retractions. Nontender. Diffuse inspiratory and expiratory wheezes throughout. Heart: Regular rate and rhythm. No murmur, rub, or gallops heard Extremities: Full range of motion. Good strength bilaterally. No clubbing, cyanosis, or edema. Peripheral pulses are intact. Sensation intact Neuro: Alert and oriented 4, GCS 15. Cranial nerves grossly intact. Motor and sensory exams nonfocal. Moves all extremities. Speech clear. Gait normal Results 24 hrs Current Medications Medications (Trade) Dose Ordered Sig/Sandra Route PRN Reason Start Time Stop Time Status Last Admin Dose Admin Albuterol (Proventil 0.083% (Neb)) 10 mg ONCE STAT N 01/19/17 14:18 01/19/17 14:20 DC 01/19/17 14:41 Ipratropium [place] (Atrovent 0.02% (Neb)) 1 mg ONCE ONCE N 01/19/17 14:30 01/19/17 14:31 DC 01/19/17 14:41 Procedures/MDM Well-appearing 27-year-old female with history of asthma present ED with cough 2 weeks. Her oxygen saturation at arrival was 93%, she has significant wheezing on auscultation. Nebulizer treatment with 10 mg albuterol and 1 mg Atrovent was given to the patient. After nebulizer treatment, there is still some wheezing remaining, but her oxygen saturation improved to 99%. I have low suspicion for pneumonia or bacterial bronchitis. Likely, her symptoms is due to viral URI. Patient appears well, stable for discharge and outpatient management. Medical decision making shared with patient and family. Education provided to patient and family. Patient and family expressed understanding of the plan. Medications on discharge: Cough medicine with codeine, albuterol HFA. Follow-up: Primary care provider in 2-3 days or return to ED if worse. Disclaimer: Inadvertent spelling and grammatical errors are likely due to EHR/ dictation software use and do not reflect on the overall quality of patient care. Also, please note that the electronic time recorded on this note does not necessarily reflect the actual time of the patient encounter. Departure Diagnosis: Primary Impression: URI (upper respiratory infection) Additional Impressions: Cough Asthma Condition: Stable Patient Instructions: Adult Self-Care for Colds, Asthma Referrals: [facility] YOU HAVE RECEIVED A MEDICAL SCREENING EXAM AND THE RESULTS INDICATE THAT YOU DO NOT HAVE A CONDITION THAT REQUIRES URGENT TREATMENT IN THE EMERGENCY DEPARTMENT. FURTHER EVALUATION AND TREATMENT OF YOUR CONDITION CAN WAIT UNTIL YOU ARE SEEN IN YOUR DOCTORS OFFICE WITHIN THE NEXT 1-2 DAYS. IT IS YOUR RESPONSIBILITY TO MAKE AN APPOINTMENT FOR FOLOW-UP CARE. IF YOU HAVE A PRIMARY DOCTOR --you should call your primary doctor and schedule an appointment IF YOU DO NOT HAVE A PRIMARY DOCTOR YOU CAN CALL OUR PHYSICIAN REFERRAL HOTLINE AT IF YOU CAN NOT AFFORD TO SEE A PHYSICIAN YOU CAN CHOSE FROM THE FOLLOWING [facility] [address] [facility]. [facility] [address] [place]. [facility] [address] [facility]. [facility] [address] [facility]. [facility] [address] [facility]. [facility]. [address] [place] Additional Instructions: Call your primary care doctor TOMORROW for an appointment during the next 2-3 days.See the doctor sooner or return here if your condition worsens before your appointment time. CHRISTY OLIVAREZ NP Jan 20, 2017 10:24
== END 2017-01-19 15:47 | disposition home or self-care (01) ==
LOC: FTE 12:49
DX: J06.9 Acute upper respiratory infection, unspecified (principal); J45.901 Unspecified asthma with (acute) exacerbation
CPT/HCPCS: 94644; Z7502; Z7610

== ENCOUNTER 2017-01-22 05:15 | Emergency (ER) | payer OTHER ==
[~2017-01-22] VITALS: Wt 59.5 kg
[2017-01-22] MEDS ORDERED: METHYLPREDNISOLONE 125 MG INJ IM STA (06:18)
[2017-01-22] MEDS ORDERED: ALBUTEROL 0.5% (NEB) 2.5 MG/0.5 ML AMP INH STA (06:18)
[2017-01-22] MEDS ORDERED: IPRATROPIUM (NEB) 0.5 MG/2.5 ML AMP NEB STA (06:18)
--- NOTE | 2017-01-22 06:35 | ERD ---
ER Documentation Chief Complaint Date/Time DATE: 01/22/17 TIME: 06:22 Chief Complaint Asthma Attack. SOB HPI 27-year-old female with a long history of asthma and multiple previous hospitalizations, most recently admitted in AprilApril 2015, last seen in the ED 2 days ago presents the ED complaining of worsening cough productive of whitish sputum and shortness of breath with wheezing. Symptoms began approximately 2 weeks ago with nonspecific URI symptoms. Including rhinorrhea, body aches, subjective fevers, cough and wheezing. Also complaining of diffuse , moderate, sharp chest pain with coughing. She was seen in the ED December 19 for similar symptoms but is not improved. No abdominal pain, posttussive emesis , nausea or vomiting. No headache or neck pain. No skin rash. Denies dysuria , polyuria hematuria. No vaginal discharge or bleeding. No ill contacts or secondary smoke exposure. ROS All systems reviewed and are negative except as per history of present illness. Medications Home Meds Active Scripts Ondansetron (Ondansetron Odt) 4 Mg Tab.rapdis, 4 MG PO Q6H Y for NAUSEA AND/OR VOMITING, #10 TAB Prov:YARITZA HERNANDEZ MD 01/22/17 Famotidine* (Pepcid*) 20 Mg Tablet, 20 MG PO BID for 10 Days, TAB Prov:YARITZA HERNANDEZ MD 01/22/17 Prednisone* (Prednisone*) 20 Mg Tab, 40 MG PO DAILY for 4 Days, TAB Prov:ROSA MCDONALD PA-C 04/16/16 Fluticasone Propionate (Flonase Allergy Relief) 9.9 Ml [place].susp, 1 SPRAY NASAL DAILY, #1 BOTTLE TO EACH NOSTRIL Prov:CHRISTY OLIVAREZ NP 11/26/15 Albuterol Sulfate* (Ventolin HFA*) 18 Gm Hfa.aer.ad, 2 PUFF INHALATION Q4H, #1 INHALER Prov:CHRISTY OLIVAREZ NP 10/27/15 Albuterol Sulfate* (Proair HFA*) 8.5 Gm Hfa.aer.ad, 2 PUFF INH Q4, #1 INHALER Prov:BRITTANY OBANDO NP 06/21/15 Levalbuterol* (Xopenex* HFA) 15 Gm Inha, 2 PUFFS INH Q4H Y for WHEEZING AND SOB for 30 Days, INHALER 1 Refill Prov:STEPHANIE PERALES MD 04/30/15 Levalbuterol Hcl* (Levalbuterol Hcl*) 0.63 Mg/3 Ml Vial.neb, 0.63 MG INHALATION q4h Y for WHEEZING AND SOB for 30 Days, VIAL 1 Refill Prov:STEPHANIE PERALES MD 04/30/15 Beclomethasone Dip* (Qvar 80*) 7.3 Gm Inha, 2 PUFF INH BID for 30 Days, INH 1 Refill Prov:STEPHANIE PERALES MD 04/30/15 Discontinued Scripts Albuterol Sulfate* (Ventolin HFA*) 18 Gm Hfa.aer.ad, 2 PUFF INHALATION Q4H, #1 INHALER Prov:CHRISTY OLIVAREZ NP 01/19/17 Guaifenesin-Codeine Phosphate* (Guaifenesin* AC Cough Syrup) 473 Ml Liquid, 10 ML PO Q4H Y for COUGH, #120 ML Prov:CHRISTY OLIVAREZ NP 01/19/17 Methylprednisolone* (Medrol* DOSE PACK) 4 Mg/Dose-Pack Tab.ds.pk, 4 MG PO . DIRECTED, #1 PACKET Prov:IVON BARCENAS PA-C 11/03/16 Albuterol Sulfate* (Proair HFA*) 8.5 Gm Hfa.aer.ad, 2 PUFF INH Q4, #1 INHALER Prov:IVON BARCENAS PA-C 11/03/16 Beclomethasone Dip* (Qvar 80*) 7.3 Gm Inha, 1 PUFF INH BID, #1 INHALER Prov:IVON BARCENAS PA-C 11/03/16 Prednisone* (Prednisone*) 20 Mg Tab, 40 MG PO DAILY for 4 Days, TAB Prov:IVON BARCENAS PA-C 09/23/16 Beclomethasone Dip* (Qvar 80*) 7.3 Gm Inha, 1 PUFF INH BID, #1 INHALER Prov:IVON BARCENAS PA-C 09/23/16 Albuterol Sulfate* (Proair HFA*) 8.5 Gm Hfa.aer.ad, 2 PUFF INH Q4, #1 INHALER Prov:IVON BARCENAS PA-C 09/23/16 Guaifenesin-Codeine Phosphate* (Guaifenesin* AC Cough Syrup) 473 Ml Liquid, 10 ML PO Q4H Y for COUGH, #120 ML Prov:CHRISTY OLIVAREZ NP 06/02/16 Beclomethasone Dip* (Qvar 40*) 7.3 Gm Inha, 2 PUFF INH BID, #1 INHALER Prov:CHRISTY OLIVAREZ [employer] 06/02/16 Prednisone* (Prednisone*) 20 Mg Tab, 60 MG PO DAILY for 5 Days, TAB Prov:CHRISTY OLIVAREZ [employer] 06/02/16 Albuterol Sulfate* (Proair HFA*) 8.5 Gm Hfa.aer.ad, 2 PUFF INH Q6, #1 INHALER Prov:ROSA MCDONALD PA-C 04/16/16 Dextromethorphan Hb-Promethazine Hcl (Promethazine DM Syrup) 473 Ml Syrup, 5 ML PO Q6H Y for COUGH for 7 Days, #4 OZ Prov:ROSA MCDONALD PA-C 04/16/16 Azithromycin* (Zithromax*) 250 Mg Tablet, 250 MG PO .ZPACK DIRECTED, #6 TAB TAKE 500 MG (2 TABS) THE FIRST DAY THEN 250 MG (1 TAB) DAYS 2-5 Prov:ROSA MCDONALD PA-C 04/16/16 Beclomethasone Dip* (Qvar 80*) 7.3 Gm Inha, 1 PUFF INH BID, #1 INHALER Prov:CHRISTY OLIVAREZ NP 11/26/15 Guaifenesin-Codeine Phosphate* (Guaifenesin* with Codeine Liq) 120 Ml Liquid, 5 ML PO Q4H for COUGH, #120 ML Prov:CHRISTY OLIVAREZ [employer] 10/27/15 Promethazine w/Codeine* (Phenergan w/Codeine* Syrup) 5 Ml Syrup, 5 ML PO Q4H Y for COUGH for 7 Days, ML 6 ounces Prov:ANGELICA FLORES MD 09/15/15 Albuterol Sulfate* (Albuterol Sulfate* Neb) 0.083%-3 Ml Neb, 2.5 MG NEB Q3H Y for WHEEZING AND SOB, #30 VIAL Prov:ANGELICA FLORES MD 5/2/16 Beclomethasone Dip* (Qvar 40*) 7.3 Gm Inha, 1 PUFF INH BID, #1 INHALER Prov:ANGELICA FLORES MD 09/15/15 Albuterol Sulfate* (Ventolin HFA*) 18 Gm Hfa.aer.ad, 2 PUFF INHALATION Q4H, #1 INHALER Prov:ANGELICA FLORES MD 09/15/15 Prednisone* (Prednisone*) 20 Mg Tab, 60 MG PO DAILY for 5 Days, TAB 60 mg by mouth for 3 days then 40 mg and mouth for 3 days. Prov:ANGELICA FLORES MD 09/15/15 Azithromycin* (Zithromax*) 250 Mg Tablet, 250 MG PO .ZPACK DIRECTED, #6 TAB TAKE 500 MG (2 TABS) THE FIRST DAY THEN 250 MG (1 TAB) DAYS 2-5 Prov:ANGELICA FLORES MD 09/15/15 Promethazine w/Codeine* (Phenergan w/Codeine* Syrup) 5 Ml Syrup, 5 ML PO Q4H Y for COUGH, #240 ML Prov:BRITTANY OBANDO NP 06/21/15 Levalbuterol Hcl* (Levalbuterol Hcl*) 0.63 Mg/3 Ml Vial.neb, 0.63 MG INHALATION Q6H Y for WHEEZING AND SOB, #20 VIAL Prov:BRITTANY OBANDO NP 06/21/15 Beclomethasone Dip* (Qvar 40*) 7.3 Gm Inha, 1 PUFF INH BID, #1 INHALER Prov:BRITTANY OBANDO NP 06/21/15 Prednisone* (Prednisone*) 20 Mg Tab, 20 MG PO DAILY for 7 Days, TAB Prov:STEPHANIE PERALES MD 04/30/15 Promethazine w/Codeine* (Phenergan w/Codeine* Syrup) 5 Ml Syrup, 5 ML PO Q4H Y for COUGH for 20 Days, ML Prov:STEPHANIE PERALES MD 04/30/15 Allergies Allergies: Coded Allergies: No Known Allergy (Unverified , 01/19/17) PMhx/Soc As per HPI History of Surgery: Yes (OVARIAN CYST REMOVAL 2012) Anesthesia Reaction: No Hx Neurological Disorder: No Hx Respiratory Disorders: Yes (ASTHMA) Hx Cardiac Disorders: No Hx Psychiatric Problems: No Hx Miscellaneous Medical Probl: Yes (Abdominal pain) Hx Alcohol Use: No Hx Substance Use: No Hx Tobacco Use: No Smoking Status: Never smoker FmHx No diabetes, asthma, seizures or stroke. Physical Exam Vitals Vital Signs Date Time Temp Pulse Resp B/P Pulse Ox O2 Delivery O2 Flow Rate FiO2 01/22/17 12:05 110 20 124/78 96 Room Air 01/22/17 09:30 111 18 130/97 95 Room Air 01/22/17 08:10 128 22 135/92 95 Room Air 01/22/17 06:36 Nasal Cannula 2 01/22/17 06:28 114 20 95 Nasal Cannula 3.0 01/22/17 06:28 95 3.0 01/22/17 05:20 98.0 126 32 140/89 91 Physical Exam Const: Alert, coughing and mild to moderate respiratory distress Head: Atraumatic Eyes: Conjunctiva Not injected, sclera anicteric ENT: Normal External Ears, Nose and Mouth.Pharynx is clear without erythema or exudate Neck: Full range of motion. No Cervical lymphadenopathy or tenderness. No meningismus. Resp: Tachypneic.Breath sounds diminished bilaterally with mild to moderate expiratory wheezing and prolonged expiratory phase. No retractions. Cardio: Regular rate and rhythm, no murmurs Abd: Soft, non tender, non distended. Normal bowel sounds Skin: No petechiae or rashes Back: No midline or flank tenderness Ext: No cyanosis, or edema. No leg swelling or tenderness. Neur: Awake and alert.No focal deficit observed Psych: Normal Mood and Affect. Appears mildly anxious but not depressed. Result Diagram: 01/22/1780401/22/17804 Results 24 hrs Laboratory Tests Test 01/22/17 08:05 White Blood Count 6.810^3/ul Red Blood Count 5.3510^6/ul Hemoglobin 15.0g/dl Hematocrit 43.3% Mean Corpuscular Volume 80.9fl Mean Corpuscular Hemoglobin 28.0pg Mean Corpuscular Hemoglobin Concent 34.6g/dl Red Cell Distribution Width 12.6% Platelet Count 78548^3/UL Mean Platelet Volume 9.6fl Neutrophils % 89.9% Lymphocytes % 6.9% Monocytes % 2.1% Eosinophils % 0.1% Basophils % 0.4% Nucleated Red Blood Cells % 0.0/100WBC Neutrophils # (Manual) 6.110^3/ul Lymphocytes # 0.510^3/ul Monocytes # 0.110^3/ul Eosinophils # 0.010^3/ul Basophils # 0.010^3/ul Nucleated Red Blood Cells # 0.010^3/ul Sodium Level 138mmol/L Potassium Level 3.7mmol/L Chloride Level 103mmol/L Carbon Dioxide Level 21mmol/L Anion Gap 18 Blood Urea Nitrogen 8mg/dl Creatinine 0.64mg/dl Glucose Level 223mg/dl Hemoglobin A1c 5.7% Calcium Level 9.4mg/dl Total Bilirubin 0.8mg/dl Direct Bilirubin 0.00mg/dl Indirect Bilirubin 0.8mg/dl Aspartate Amino Transf (AST/SGOT) 28IU/L Alanine Aminotransferase (ALT/SGPT) 31IU/L Alkaline Phosphatase 76IU/L Total Protein 7.9g/dl Albumin 4.6g/dl Globulin 3.30g/dl Albumin/Globulin Ratio 1.39 Lipase 33U/L Current Medications Medications (Trade) Dose Ordered Sig/Sandra Route PRN Reason Start Time Stop Time Status Last Admin Dose Admin Ipratropium [place] (Atrovent 0.02% (Neb)) 1 mg ONCE STAT NEB 01/22/17 06:18 01/22/17 06:21 DC 01/22/17 06:27 Albuterol (Proventil 0.5% (Neb)) 15 mg ONCE STAT INH 01/22/17 06:18 01/22/17 06:21 DC 01/22/17 06:28 Methylprednisolone Sodium Succinate 125 mg 125 mg ONCE STAT IM 01/22/17 06:18 01/22/17 06:21 DC 01/22/17 06:37 Sodium Chloride (NS) 1,000 ml @ 1,000 mls/hr Q1H STAT IV 01/22/17 07:57 01/22/17 08:56 DC 01/22/17 08:09 Morphine Sulfate (morphine) 4 mg ONCE STAT IV 01/22/17 07:57 01/22/17 07:59 DC 01/22/17 08:04 Ondansetron HCl (Zofran Inj) 4 mg ONCE STAT IV 01/22/17 07:57 9/9/17 07:59 DC 01/22/17 08:04 Famotidine (Pepcid Iv) 20 mg ONCE STAT IV 01/22/17 07:57 01/22/17 07:59 DC 01/22/17 08:04 Miscellaneous Medication (Gi Cocktail (2)) 40 ml ONCE STAT PO 01/22/17 07:57 01/22/17 07:59 DC 01/22/17 08:04 Morphine Sulfate 4 mg 4 mg ONCE STAT IV 01/22/17 09:11 01/22/17 09:13 DC 01/22/17 09:25 Sodium Chloride (NS) 1,000 ml @ 1,000 mls/hr Q1H STAT IV 01/22/17 09:14 01/22/17 10:13 DC 01/22/17 09:26 Iohexol 150 ml 150 ml STK-MED ONCE .ROUTE 01/22/17 09:47 01/22/17 09:48 DC 01/22/17 10:16 Sodium Chloride (NS) 100 ml @ ud STK-MED ONCE .ROUTE 01/22/17 09:47 01/22/17 09:48 DC 01/22/17 10:17 IMAGING: PROCEDURE: XR Chest. CLINICAL INDICATION: Asthma exacerbation. TECHNIQUE: Single frontal view of the chest was obtained. COMPARISON: Chest x-ray 04/16/2016 03:50 p.m. FINDINGS: There are nodular densities suggestive of artifact projecting over the lower right chest wall and periphery of the right lower lung field. The diaphragms are flattened. There are degenerative osteophytes in the thoracic spine. The heart, cardiomediastinal silhouette and hilar structures are normal. The pulmonary vasculature is normal. There is a left-sided aorta. No regional infiltrate is identified. The costophrenic angles are normal. IMPRESSION: 1. Pulmonary hyperinflation which is little changed as compared to 04/16/2016. No acute infiltrate is identified. 2. Nodular and linear radiodensities projecting over the lower right chest wall and right lower lung field are likely artifactual. Small calcified nodules in the lung could not be entirely excluded from this single view. A repeat chest x-ray view or supplementary lateral view can be performed to confirm this if clinically indicated. RPTAT:AAJJ Physician Gin Date Time Electronically viewed and signed by Physician Gin on 01/22/2017 08:04 JM/ PROCEDURE: CT Abdomen and Pelvis with contrast. CLINICAL INDICATION: Abdominal pain. TECHNIQUE: CT scan of the abdomen and pelvis with contrast was performed utilizing axial tomographic images from the domes the diaphragm to the symphysis pubis. The patient was scanned post uncomplicated intravenous administration of 90 cc of Omnipaque-300. Coronal and sagittal reformatted images were obtained from the axial source images. Images were reviewed on a high-resolution PACS workstation. The total exam CTDI equals 7.94 mGy and the total exam DLP equals 433.59 mGy-cm. One or more of the following dose reduction techniques were used: Automated exposure control, adjustment of the mA and / or kV according to patient size, or use of iterative reconstruction technique. COMPARISON: None. FINDINGS: The lung bases demonstrate mild ground-glass opacities in the right middle lobe. The liver is normal in size and contour. No focal intrahepatic masses are identified. There is no intra or extrahepatic biliary dilatation. The gallbladder is unremarkable by CT criteria. The spleen, pancreas, and adrenal glands are unremarkable. The kidneys are symmetric in size and demonstrate normal enhancement. There is a 1.0 cm hypo enhancing lesion within the mid pole of the right kidney, likely a cyst. No hydronephrosis or hydroureter is seen. No renal parenchymal mass is identified. The urinary bladder is unremarkable. The bowel demonstrates normal course and caliber. There is no evidence of bowel obstruction. No bowel wall thickening is identified. The appendix is not identified with certainty. No right lower quadrant inflammatory changes are noted. The uterus and adnexa are unremarkable. No intraperitoneal free fluid, free air or abscess identified. No retroperitoneal, mesenteric, or inguinal adenopathy is identified. The abdominal aorta and major branching vessels are normal in caliber. The osseous structures are unremarkable. No significant subcutaneous soft tissue abnormality is identified. IMPRESSION: Unremarkable CT scan of the abdomen and pelvis. RPTAT: .Daisy Chaparro MD, MD Date Time Electronically viewed and signed by .Daisy hCaparro MD, MD on 01/22/2017 10 :27 .G/ Procedures/MDM DOCUMENTS REVIEWED: ED nurseMultiple prior ED visits most recently 01/19/2017 for shortness of breath and wheezing. ED COURSE: Nebulized Albuterol 15 mg/Atrovent 1 mg. Solu-Medrol 125 mg IM. Toradol 50 mg IM. REEXAMINATION/REEVALUATIONS: Time: 08:00. No shortness of breath. Increasing breath sounds without wheezing. Not complaining of moderate to severe, sharp and crampy epigastric abdominal pain. Nausea but no vomiting. Exam reveals mild epigastric tenderness but no right upper lower quadrant tenderness. No rebound or guarding. Normal saline 1 L, Morphine 4 mg, Pepcid 20 mg, Zofran 4 mg and a GI cocktail ordered. Time: 09:00. Still complaining of severe abdominal pain. Exam reveals epigastric tenderness but no rebound or guarding. No right or left lower quadrant tenderness. Morphine 4 mg IV given. Time: 10:30. CT of the abdomen and pelvis reveals no acute pathology. Sleeping upon awakening still complains of abdominal pain but exam is completely benign. Time: 09:00. Lungs are clear without no shortness of breath lungs are clear bilaterally without wheezing. Breath sounds are equal bilaterally with good air exchange and no wheezing. Still complains of mild abdominal pain but exam is benign without significant tenderness, rebound, guarding or signs of peritonitis. Tolerating PO's MEDICAL DECISION MAKIN-year-old female with a long history of asthma and multiple previous hospitalizations, most recently admitted in AprilApril 2015, last seen in the ED 2 days ago presents the ED complaining of worsening cough productive of whitish sputum and shortness of breath with wheezing. Presentation consistent with asthma exacerbation. Improved with nebulized beta agonists and intramuscular corticosteroids. Doubt influenza. No radiographic evidence of pneumonia or pneumothorax. Patient subsequently got complaining of abdominal pain which she has had previously. In October 2014 had similar symptoms , the bite asthma exacerbation was time ultrasound of the abdomen revealed no cholelithiasis or cholecystitis was negative. Pain presumed to be second to gastritis/GERD although she expands minimal relief from Pepcid and GI cocktail. Required multiple doses of morphine for pain control. CT scan of abdomen pelvis completely negative reveals no acute pathology and the etiology of her symptoms is not definitively established. However abdominal exam is benign without significant tenderness, rebound, guarding or signs of peritonitis. Doubt an acute intra-abdominal process including but not limited to appendicitis , diverticulitis, bowel obstruction, ovarian cyst or torsion. No urinary tract infection, pyelonephritis or symptoms of PID and pelvic exam was deferred. Stable for discharge with precautionary instructions and outpatient follow-up as counseled. Hyperglycemia and new onset diabetes is considered. Continue current medications which include nebulized albuterol, albuterol inhaler, inhaled corticosteroids and oral corticosteroids. Counseled patient and family regarding diagnostic workup, diagnosis and need for followup. Understands to return to ED if symptoms recur, worsen or any other concerns. OBSERVATION NOTE: At 07:00 the patient was entered into observation status to establish the need for admission. During this time the patient was treated for Shortness of breath secondary to asthma exacerbation and abdominal pain. Additionally, extensive evaluation including, CBC, Chemistry, Urinalysis, CXR and CAT scan of the abdomen/pelvis were preformed and results interpreted as above. Vitals signs were monitored and repeat exams were performed every 15-20 minutes. At 11:30 the patient was reexamined; VSS, afebrile, pain resolved, lungs clear and tolerating PO's. Based on these findings the patient was discharged from observation period as it was determined that the patient was improved and met criteria for discharge. TOTAL OBSERVATION TIME: 4.5 hours. Departure Diagnosis: Primary Impression: Acute dyspnea Additional Impressions: Asthma with acute exacerbation Asthma severity: moderate persistent Qualified Code: J45.41 - Moderate persistent asthma with acute exacerbation Abdominal pain, generalized Abdominal pain of unknown etiology Nonspecific syndrome suggestive of viral illness Hyperglycemia, unspecified Condition: Stable (Improved) YARITZA HERNANDEZ MD Jan 22, 2017 06:33
[2017-01-22] MEDS ORDERED: LIDOCAINE/MYLANTA 40 ML BTL PO STA (07:57)
[2017-01-22] MEDS ORDERED: SOD CHLORIDE 0.9% 1,000 ML IV STA ×2 (07:57→09:14)
[2017-01-22] MEDS ORDERED: FAMOTIDINE 20 MG INJ IV STA (07:57)
[2017-01-22] MEDS ORDERED: ONDANSETRON 4 MG INJ IV STA (07:57)
[2017-01-22] MEDS ORDERED: morphine 4 MG/ML VIAL IV STA ×2 (07:57→09:11)
--- NOTE | 2017-01-22 08:05 | RADRPT ---
PROCEDURE: XR Chest. CLINICAL INDICATION: Asthma exacerbation. TECHNIQUE: Single frontal view of the chest was obtained. COMPARISON: Chest x-ray 04/16/2016 03:50 p.m. FINDINGS: There are nodular densities suggestive of artifact projecting over the lower right chest wall and pe riphery of the right lower lung field. The diaphragms are flattened. There are degenerative osteoph ytes in the thoracic spine. The heart, cardiomediastinal silhouette and hilar structures are normal . The pulmonary vasculature is normal. There is a left-sided aorta. No regional infiltrate is ident ified. The costophrenic angles are normal. IMPRESSION: 1. Pulmonary hyperinflation which is little changed as compared to 04/16/2016. No acute infiltrate i s identified. 2. Nodular and linear radiodensities projecting over the lower right chest wall and right lower lyric g field are likely artifactual. Small calcified nodules in the lung could not be entirely excluded f rom this single view. A repeat chest x-ray view or supplementary lateral view can be performed to co nfirm this if clinically indicated. RPTAT:AAJJ Physician Gin Date Time Electronically viewed and signed by Physician Gin on 01/22/2017 08:04 /
[2017-01-22 08:20] LABS: ABNORMAL IP MESSAGE 1; BASOPHILS % 0.4 % (0.0-2.0); EOSINOPHILS % 0.1 % (0.0-7.0); HEMATOCRIT 43.3 % (37.0-47.0); LYMPHOCYTES # 0.5 10^3/ul (0.8-2.9); LYMPHOCYTES % 6.9 % (15.0-51.0); MEAN CORPUSCULAR HGB CONC 34.6 g/dl (32.0-37.0); MEAN CORPUSCULAR VOLUME 80.9 fl (82.0-101.0); MEAN PLATELET VOLUME 9.6 fl (7.4-10.4); MONOCYTE # 0.1 10^3/ul (0.3-0.9); MONOCYTES % 2.1 % (0.0-11.0); NEUTROPHILS % 89.9 % (39.0-77.0); PLATELET COUNT 225 10^3/UL (140-415); RED BLOOD COUNT 5.35 10^6/ul (4.20-5.40); RED CELL DISTRIBUTION WIDTH 12.6 % (11.5-14.5); WHITE BLOOD COUNT 6.8 10^3/ul (4.8-10.8)
[2017-01-22 08:27] LABS: POSITIVE DIFF @See below
[2017-01-22 08:33] LABS: ALBUMIN 4.6 g/dl (3.3-4.9); ALBUMIN/GLOBULIN RATIO 1.39; BILIRUBIN,INDIRECT 0.8 mg/dl (0-1.1); BILIRUBIN,TOTAL 0.8 mg/dl (0.2-1.3); CALCIUM 9.4 mg/dl (8.4-10.2); CREATININE 0.64 mg/dl (0.44-1.00); POTASSIUM 3.7 mmol/L (3.5-5.1); TOTAL PROTEIN 7.9 g/dl (6.1-8.1)
[2017-01-22] MEDS ORDERED: SOD CHLORIDE 0.9% 100 ML ONE (09:47)
[2017-01-22] MEDS ORDERED: IOHEXOL 300MG/ML 150 ML BTL ONE (09:47)
--- NOTE | 2017-01-22 10:27 | RADRPT ---
PROCEDURE: CT Abdomen and Pelvis with contrast. CLINICAL INDICATION: Abdominal pain. TECHNIQUE: CT scan of the abdomen and pelvis with contrast was performed utilizing axial tomograph ic images from the domes the diaphragm to the symphysis pubis. The patient was scanned post uncomp licated intravenous administration of 90 cc of Omnipaque-300. Coronal and sagittal reformatted imag es were obtained from the axial source images. [facility] The total exam CTDI equals 7.94 mGy and the total exam DLP equals 433.59 mGy-cm. One or more of the following dose reduction techniques were used: Automated exposure control, adjustment of th e mA and / or kV according to patient size, or use of iterative reconstruction technique. COMPARISON: None. FINDINGS: The lung bases demonstrate mild ground-glass opacities in the right middle lobe. The liver is norm al in size and contour. No focal intrahepatic masses are identified. There is no intra or extrahep atic biliary dilatation. The gallbladder is unremarkable by CT criteria. The spleen, pancreas, and adrenal glands are unremarkable. The kidneys are symmetric in size and demonstrate normal enhancement. There is a 1.0 cm hypo enhanci ng lesion within the mid pole of the right kidney, likely a cyst. No hydronephrosis or hydroureter i s seen. No renal parenchymal mass is identified. The urinary bladder is unremarkable. The bowel demonstrates normal course and caliber. There is no evidence of bowel obstruction. No divine wel wall thickening is identified. The appendix is not identified with certainty. No right lower q uadrant inflammatory changes are noted. The uterus and adnexa are unremarkable. No intraperitoneal free fluid, free air or abscess identified. No retroperitoneal, mesenteric, or inguinal adenopathy i s identified. The abdominal aorta and major branching vessels are normal in caliber. The osseous structures are u nremarkable. No significant subcutaneous soft tissue abnormality is identified. IMPRESSION: Unremarkable CT scan of the abdomen and pelvis. RPTAT: HH .Daisy Chaparro MD, Date Time Electronically viewed and signed by .Daisy Chaparro MD, on 01/22/2017 10:27 .Rai/
[2017-01-22] MEDS ORDERED: ONDA4TAB14 PO (11:29)
[2017-01-22] MEDS ORDERED: FAMO-96 PO (11:29)
[2017-01-22 12:05] VITALS: BP 124/78; PULSE 110; RESP 20
== END 2017-01-22 12:10 | disposition home or self-care (01) ==
LOC: E/R 05:15
DX: R06.00 Dyspnea, unspecified (principal); J45.41 Moderate persistent asthma with (acute) exacerbation; R10.84 Generalized abdominal pain; B97.89 Other viral agents as the cause of diseases classified elsewhere; R73.9 Hyperglycemia, unspecified
CPT/HCPCS: 71010; 74177; 80053; 83036; 83690; 85025; 94640; 94644; 96372; 96374; 96375; 96376; J2270; J2405; J2930; J7030; Q9967; Z7502; Z7610